=== PATIENT | male | born 1980 | race Caucasian/White ===

== ENCOUNTER 2017-03-17 13:53 | Emergency (ER) | payer MEDICAID ==
[2017-03-17 14:01] VITALS: BP 144/67
== END 2017-03-17 16:03 | disposition left against medical advice (07) ==
LOC: ED 13:53
DX: Z00.8 Encounter for other general examination (principal); Z53.21 Procedure and treatment not carried out due to patient leaving prior to being seen by health care provider

== ENCOUNTER 2018-08-06 09:54 | Emergency (ER) | payer MEDICAID, OTHER ==
[2018-08-06 10:40] VITALS: BP 147/87
--- NOTE | 2018-08-06 11:55 | UC ---
Lower Extremity/Ankle HPI - History of Current Complaint Chief Complaint: UCLowerExtremity Stated Complaint: RT FOOT INJURY Time Seen by Provider: 08/06/18 11:55 Pain Intensity: 7 - Allergies/Home Medications Allergies/Adverse Reactions: Allergies Allergy/AdvReac Type Severity Reaction Status Date / Time cefaclor [From Ceclor] Allergy Hives Verified 08/06/18 10:40 Penicillins Allergy Hives Verified 08/06/18 10:40 Sulfa (Sulfonamide Allergy Hives Verified 08/06/18 10:40 Antibiotics) Home Medications: Home Medications Pregabalin [Lyrica] 150 mg PO BID 08/06/18 [History Confirmed 08/06/18] buPROPion TAB* [Wellbutrin TAB*] 300 mg PO DAILY 08/06/18 [History Confirmed 05/15] PMH/Surg Hx/FS Hx/Imm Hx - Surgical History Surgical History: Yes Surgery Procedure, Year, and Place: [place] [facility]eth, calcified gland - Social History Alcohol Use: None Substance Use Type: None Substance Use Comment - Amount & Last Used: receiving addict-goes to [employer] Smoking Status (MU): Former Smoker Type: Cigarettes Amount Used/How Often: socially Have You Smoked in the Last Year: Yes Household Exposure Type: Cigarettes - Immunization History Most Recent Tetanus Shot: 2014 Physical Exam Vital Signs: Initial Vital Signs Temp 98.5 F 08/06/18 10:36 Pulse 74 08/06/18 10:36 Resp 18 08/06/18 10:36 BP 147/87 08/06/18 10:36 Pulse Ox 100 08/06/18 10:36 Discharge - Discharge Plan Referrals: Cinthia Larson NP [Primary Care Provider] -
== END 2018-08-06 12:30 | disposition left against medical advice (07) ==
LOC: UCEAST 09:54
DX: S99.922A Unspecified injury of left foot, initial encounter (principal); X58.XXXA Exposure to other specified factors, initial encounter; Y92.9 Unspecified place or not applicable; Z53.21 Procedure and treatment not carried out due to patient leaving prior to being seen by health care provider

== ENCOUNTER 2018-10-08 16:07 | Emergency (ER) | payer OTHER ==
[2018-10-08 16:15] VITALS: BP 135/91
--- NOTE | 2018-10-08 16:40 | UC ---
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 DOES NOT RECALL HAVING A TICK BUT ABOUT A WEEK AGO NOTED A RED LESION ON HIS RIGHT POSTERIOR SHOULDER. A FEW DAYS AGO HE NOTICED THAT IT WAS A TARGET LESION AND HE DEVELOPED HEADACHE, BODY ACHES AND SOME MALAISE/FATIGUE. DENIES ANY FEVER. - History of Current Complaint Chief Complaint: UCSkin Time Seen by Provider: 10/08/18 16:17 Stated Complaint: TICK BITE Hx Obtained From: Patient Onset/Duration: Gradual Onset, Lasting Days, Still Present Timing: Constant Onset Severity: Moderate Current Severity: Moderate Pain Intensity: 5 Pain Scale Used: 0-10 Numeric Location: Discrete - RIGHT POSTERIOR SHOULDER Character: Redness Aggravating Factor(s): Nothing Alleviating Factor(s): Nothing Associated Signs & Symptoms: Positive: Rash. Negative: Nausea, Fever, Drainage , Tenderness - Allergy/Home Medications Allergies/Adverse Reactions: Allergies Allergy/AdvReac Type Severity Reaction Status Date / Time [facility] Allergy Hives Verified 10/08/18 16:15 Penicillins Allergy Hives Verified 10/08/18 16:15 Sulfa (Sulfonamide Allergy Hives Verified 10/08/18 16:15 Antibiotics) PMH/Surg Hx/FS Hx/Imm Hx Respiratory History: Asthma - Surgical History Surgical History: Yes Surgery Procedure, Year, and Place: [place] [facility]eth, calcified gland - Family History Known Family History: Positive: Non-Contributory - Social History Alcohol Use: None Substance Use Type: None Substance Use Comment - Amount & Last Used: recoving addict-goes to cars Smoking Status (MU): Former Smoker Type: Cigarettes Amount Used/How Often: socially Have You Smoked in the Last Year: Yes Household Exposure Type: Cigarettes - Immunization History Most Recent Tetanus Shot: 2014 Review of Systems All Other Systems Reviewed And Are Negative: Yes Constitutional: Positive: Fatigue Skin: Positive: Rash Respiratory: Positive: Negative Cardiovascular: Positive: Negative Gastrointestinal: Positive: Negative Musculoskeletal: Positive: Myalgia Neurological: Positive: Headache Physical Exam Triage Information Reviewed: Yes Appearance: Well-Appearing, No Pain Distress, Well-Nourished Vital Signs: Initial Vital Signs Temp 97.8 F 10/08/18 16:12 Pulse 75 10/08/18 16:12 Resp 18 10/08/18 16:12 BP 135/91 05/14/19 16:12 Pulse Ox 100 10/08/18 16:12 Vital Signs Reviewed: Yes Eyes: Positive: Conjunctiva Clear ENT: Positive: Hearing grossly normal Neck: Positive: Supple Respiratory: Positive: No respiratory distress, No accessory muscle use Cardiovascular: Positive: Pulses Normal Abdomen Description: Positive: Soft Musculoskeletal: Positive: No Edema Neurological: Positive: Alert Psychological: Positive: Age Appropriate Behavior Skin: Positive: Rashes - 11CM x 7CM TARGET LESION RIGHT POSTERIOR SHOULDER Course/Dx - Diagnoses Provider Diagnosis: Erythema migrans (Lyme disease) Discharge - Sign-Out/Discharge Documenting (check all that apply): Patient Departure All imaging exams completed and their final reports reviewed: No Studies - Discharge Plan Condition: Stable Disposition: HOME Prescriptions: Doxycycline Monohydrate 1 cap PO BID #28 cap Patient Education Materials: Lyme Disease (ED) Referrals: Annika SANDHU,Leighton Connors [Medical Doctor] - If Needed Cinthia Larson NP [Primary Care Provider] - If Needed Additional Instructions: LYME DISEASE: You are suspected of having Lyme disease. Further testing may be necessary to confirm the diagnosis. Lyme disease is an infection spread through the bite of a deer tick. Symptoms include rash, fever, fatigue, joint swelling, and aches. Lyme disease can be treated with antibiotics. It is important that you take the entire course of medication. Call the physician if you develop severe headache, stiff neck, paralysis or "drooping" of either side of the face, or a worsening of any other symptom. The majority of patients with early Lyme disease who receive appropriate antibiotic therapy have complete resolution of the signs and symptoms of infection within 20 days and, in one trial, erythema migrans (the rash) and its associated symptoms resolved in a mean of five to six days. Patients who are more systemically ill at the beginning of treatment may take longer to recover. Some patients have mild subjective symptoms, such as headache, musculoskeletal pain, arthralgia, or fatigue, that persist for weeks to months after treatment. These subjective findings often resolve spontaneously, usually within six months , without further antibiotic therapy; they are not due to ongoing active Lyme disease. Almost all patients who have a satisfactory response to antibiotic therapy do well over the retirement. DOXYCYCLINE WILL MAKE YOU MORE SENSITIVE TO UV RAYS SO BE SURE TO TAKE EXTRA SUN PRECAUTIONS WHILE YOU ARE ON THIS MEDICATION. IF YOU HAVE ANY QUESTIONS ABOUT LYME FOLLOW-UP WITH DR. PUCKETT. FOR YOUR INFORMATION: LYME DISEASE PROPHYLAXIS The Infectious Disease Society of [place] (IDSA) does not generally recommend antimicrobial prophylaxis for prevention of Lyme disease after a recognized tick bite. However, in areas that are highly endemic for Lyme disease, a single dose of doxycycline may be offered to adult patients (200 mg) who are not and to children older than 8 years of age (4 mg/kg up to a maximum dose of 200 mg) when all of the following circumstances exist: CRITERIA FOR RECEIVING PROPHYLACTIC TREATMENT FOR LYME DISEASE 1) TICK ATTACHED FOR AT LEAST 36 HRS 2) TICK IS AN ADULT OR [place] DEER TICK 3) YOU LIVE IN AN AREA WHERE LYME DISEASE IS PREVALENT (i.e., [place], [place], [place], [place], [place] , [place], [place], [place], [place], [place], [place], [place], [place], [place]) 4) YOU HAVE NO CONTRAINDICATION TO THE MEDICATION (DOXYCYCLINE) 5) PROPHYLAXIS IS BEGUN WITHIN 72 HRS OF TICK REMOVAL THE CHANCES OF DEVELOPING LYME DISEASE ARE EXTREMELY SMALL. HOWEVER, 1 TICK MEANS THERE MAY HAVE BEEN OTHER TICKS OF WHICH YOU WEREN'T AWARE. SO BE VIGILANT OF YOUR SYMPTOMS AND DON'T HESITATE TO GET SEEN AGAIN IF YOU DEVELOP UNEXPLAINED FEVER, HEADACHE, JOINT PAIN, BODY ACHES, RASH OR ANY OTHER CONCERNING SYMPTOMS. Antibiotic treatment following a tick bite is not recommended as a means to prevent anaplasmosis, babesiosis, ehrlichiosis, or [place] spotted fever. There is no evidence this practice is effective, and it may simply delay onset of disease. Instead, persons who experience a tick bite should be alert for symptoms suggestive of tickborne illness and consult a physician if fever, rash, headache or other symptoms of concern develop. - Billing Disposition and Condition Condition: STABLE Disposition: Home
== END 2018-10-08 16:45 | disposition home or self-care (01) ==
LOC: UCEAST 16:07
DX: A69.20 Lyme disease, unspecified (principal); J45.909 Unspecified asthma, uncomplicated; M75.91 Shoulder lesion, unspecified, right shoulder; Z88.1 Allergy status to other antibiotic agents; Z88.0 Allergy status to penicillin; Z88.2 Allergy status to sulfonamides; Z87.891 Personal history of nicotine dependence
CPT/HCPCS: 99212; G0463

== ENCOUNTER 2019-04-06 15:57 | Emergency (ER) | payer OTHER ==
[2019-04-06 16:22] VITALS: BP 131/94
--- NOTE | 2019-04-06 16:30 | UC ---
Skin Complaint HPI - HPI Summary HPI Summary: abscess with surrounding cellulites left forearm, in 2 separate areas, right arm has 2 areas of superficial thrombophlebitis, no streaking, elbows with full rom, n/m/c intact distally==no fevers or chills - History of Current Complaint Chief Complaint: UCRash Time Seen by Provider: 04/06/19 16:09 Stated Complaint: LAC INFECTION Hx Obtained From: Patient Onset/Duration: Sudden Onset, Lasting Days - 3, Still Present, Worse Since - today Timing: Constant Onset Severity: Mild Current Severity: Moderate Location: Discrete - right ac and left forearm Character: Pain, Redness Aggravating Factor(s): Touch Alleviating Factor(s): Treatment [employer]: - patient opened abscess on left forearm himself yesterday Associated Signs & Symptoms: Positive: Negative - Allergy/Home Medications Allergies/Adverse Reactions: Allergies Allergy/AdvReac Type Severity Reaction Status Date / Time cefaclor [From Ceclor] Allergy Hives Verified 04/06/19 16:23 Penicillins Allergy Hives Verified 04/06/19 16:23 Sulfa (Sulfonamide Allergy Hives Verified 04/06/19 16:23 Antibiotics) PMH/Surg Hx/FS Hx/Imm Hx Previously Healthy: No Psychological History: Anxiety Other Psychological History: opiate use disorder on MAT - Surgical History Surgical History: Yes Surgery Procedure, Year, and Place: [place] Teeth, calcified gland - Family History Known Family History: Positive: Non-Contributory - Social History Occupation: Employed Full-time Alcohol Use: None Substance Use Type: None Substance Use Comment - Amount & Last Used: recoving addict-goes to cars Smoking Status (MU): Former Smoker Type: Cigarettes Amount Used/How Often: socially Have You Smoked in the Last Year: Yes Household Exposure Type: Cigarettes - Immunization History Most Recent Tetanus Shot: 2014 Review of Systems All Other Systems Reviewed And Are Negative: Yes Constitutional: Positive: Negative Skin: Positive: Other - 2 areas approx 10 cm diameter onleft fore arm, 2 small superficial; tender erythemic area right ac Eyes: Positive: Negative ENT: Positive: Negative Respiratory: Positive: Negative Cardiovascular: Positive: Negative Gastrointestinal: Positive: Negative Genitourinary: Positive: Negative Motor: Positive: Negative Neurovascular: Positive: Negative Musculoskeletal: Positive: Negative Neurological: Positive: Negative Psychological: Positive: Negative Is Patient Immunocompromised?: No Physical Exam Triage Information Reviewed: Yes Appearance: Well-Appearing, No Pain Distress, Well-Nourished Vital Signs Reviewed: Yes Eye Exam: Normal Eyes: Positive: Conjunctiva Clear ENT Exam: Normal ENT: Positive: Normal ENT inspection, Hearing grossly normal, Pharynx normal. Negative: Nasal congestion, Trismus, Muffled voice, Hoarse voice Dental Exam: Normal Neck exam: Normal Neck: Positive: Supple, Nontender Respiratory Exam: Normal Respiratory: Positive: Chest non-tender, No respiratory distress, No accessory muscle use Cardiovascular Exam: Normal Cardiovascular: Positive: No Murmur, Pulses Normal, Brisk Capillary Refill, Tachycardia Musculoskeletal Exam: Normal Musculoskeletal: Positive: Strength Intact, ROM Intact, No Edema Neurological Exam: Normal Neurological: Positive: Alert, Muscle Tone Normal Psychological Exam: Normal Skin Exam: Other Skin: Positive: Other - left forearm with 2 areas erythema with center tenderness approx 10 cm from injection drug use 3 days ago Course/Dx - Course Course Of Treatment: warm compress 4-5 times day, clindamycin, to ed if symptoms worsen in any way-- [facility] for follow up - Diagnoses Provider Diagnosis: Cellulitis and abscess of upper arm and forearm Discharge ED - Sign-Out/Discharge Documenting (check all that apply): Patient Departure All imaging exams completed and their final reports reviewed: No Studies - Discharge Plan Condition: Stable Disposition: HOME Prescriptions: Clindamycin Cap(NF) [Clindamycin Cap 300 mg Cap(NF)] 300 mg PO Q6H #40 cap Ibuprofen TAB* [Motrin TAB* 600 MG] 600 mg PO Q6H PRN #40 tab PRN Reason: Pain - Moderate Patient Education Materials: Cellulitis (ED), Abscess (ED), Heat Pack Application (ED) Forms: *Work Release Referrals: [facility] [Outside] - 3 Days - Billing Disposition and Condition Condition: STABLE Disposition: Home - Attestation Statements Provider Attestation: I was available for consult. This patient was seen by the PA[facility]. The patient was not presented to , seen by or examined by nv -Karma Mendiola MD
[2019-04-06] MEDS ORDERED: Ibuprofen TAB* 600 MG PO ONE (16:36)
[2019-04-06] MEDS ORDERED: Clindamycin CAP* 150 MG PO ONE ×2 (16:37→16:39)
== END 2019-04-06 17:04 | disposition home or self-care (01) ==
LOC: UCEAST 15:57
DX: L03.114 Cellulitis of left upper limb (principal); L02.414 Cutaneous abscess of left upper limb; Z88.0 Allergy status to penicillin; Z88.2 Allergy status to sulfonamides; Z88.1 Allergy status to other antibiotic agents; Z87.891 Personal history of nicotine dependence
CPT/HCPCS: 99212; A9270-GY; G0463

== ENCOUNTER 2019-05-29 16:41 | Emergency (ER) | payer OTHER ==
--- OUTSIDE RECORDS SUMMARY | 2019-05-29 16:48 | XMS REPORT ---
:1980 Author Organization [facility] Care Team Providers Name Role Phone Lucy Xiong Primary Care Physician Unavailable Allergies, Adverse Reactions, Alerts Allergy Code CodeSystem Reaction Severity Criticality Status Start Substance Date Moderate Medications Medication Medication Medication Start Stop Route Dose Status Fill Code CodeSystem Date Date Instructions buprenorphin 1640914 RxNorm 2019- SL 8-[address] 1 film e-naloxone 09-20- film once a under tongue day once a day for 28 day(s) bupropion 558052 RxNorm 2019- oral 300 mg completed for 30 HCl 3 06-05 tablet day(s) extended release 24 hr Lyrica 062564 RxNorm 2018- oral 150 mg completed for 30 06-21 05-23 capsule day(s) buprenorphin 511812 RxNorm 2018- SL 8-[address] 1 e-naloxone 10-17-16 tablet, tablet under sublingual tongue once a once a day day for 28 day(s) nicotine 574752 RxNorm 2019- bucl 4 mg gum completed for 30 (polacrilex) 07-31 07-16 day(s) Lyrica 745646 RxNorm 2019- oral 150 mg 1 active Take 1 8- 11-19 capsule capsule twice a day twice a day for 30 day(s) bupropion 095735 RxNorm oral 300 mg 1 active Take 1 tablet HCl 6-05 tablet every extended morning for release 24 30 day(s) hr every morning Lyrica 322109 RxNorm oral 100 mg 1 active Take 1 7-29 capsule capsule once once a day a day for 30 day(s) buprenorphin 6057740 RxNorm 2019- SL 8-2 mg completed for 28 e-naloxone 2- film day(s) buprenorphin 7976704 RxNorm SL 8-[address] 1 film e-naloxone 8-16 film once a under tongue day once a day for 28 day(s) Lyrica 418320 RxNorm 2019- oral 150 mg 1 completed Take 1 10-17 08-21 capsule capsule twice a day twice a day for 30 day(s) armodafinil 236785 RxNorm oral 250 mg active for 30 3-25 tablet day(s) nicotine 084443 RxNorm bucl 4 mg 1 gum active Chew 1 piece (polacrilex) 7-16 as directed as directed for 30 day(s) Problems Problem Name Code CodeSystem Alternate Alternate Start End Status Narrative Code CodeSystem Date Date Nicotine 07728683 SNOMED-CT Active dependence, 4-16 unspecified, uncomplicated Generalized 36202430 SNOMED-CT Active anxiety 4-16 disorder 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, recurrent, in partial remission Major 61070332 SNOMED-CT Active 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, recurrent, in partial remission Nicotine 70086332 SNOMED-CT Active dependence, 4-16 unspecified, in remission Alcohol 79443570 SNOMED-CT Active dependence, in 4-16 remission 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, in remission Opioid 16402268 SNOMED-CT Active dependence, in 4-16 remission Major 86994564 SNOMED-CT Active 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, recurrent, in partial remission Major 99523289 SNOMED-CT 0 Active 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, recurrent, in partial remission Relevant diagnostic tests/laboratory data Narrative No Information Procedures Procedure Code CodeSystem Target Date of Status Service Device Device Device Name Site Procedure Delivery Code Name UID Location Psychotherap [id number] SNOMED-CT () 2018-12-09 complete Mental y, 45 04 d Health- minutes with [facility] patient [address], [id number] [place] [id number] SNOMED-CT () 2018-09-30 complete Mental other 7 d Health- outpatient [facility] visit for [address], [facility], established [id number] patient, [id number] which requires at least 2 of these 3 snell components: An expanded problem focused history; An expanded problem focused examination; Medical decision making of low Office or [id number] SNOMED-CT () 2018-12-23 complete Mental other 6 d Health- outpatient [facility] visit for [facility] the [address] [place] [address], established [id number] patient, [id number] which requires at least 2 of these 3 snell components: A problem focused history; A problem focused examination; Straightforw chris medical decision making. Counselin SNOMED-CT () 2018-09-23 complete Mental d Health[address], [id number] [id number] SNOMED-CT () 2019-01-06 complete Mental d [address], [id number] SNOMED-CT () 2019-04-04 complete Mental d Health[address], [id number] Encounters/Encounter Diagnoses Encounter Name Encounter Diagnosis Diagnosis Diagnosis Date of Service Code Code Name CodeSystem Diagnosis Delivery Location [facility] [id number] Major SNOMED-CT 2019-04-16 Behavioral Established depressive Health patient 10 disorder, Clinic , , Minutes recurrent, , in partial remission Vital Signs No Information Social History Element Description Description Start End Code CodeSystem AdditionalInfo Date Date SexAssignedAtBirth Male 1981-0 M AdministrativeGender 10-03 Hospital Discharge Instructions Reason For Referral Medical Equipment FDA Assessments
[2019-05-29] MEDS ORDERED: Naproxen TAB* 250 MG PO ONE (17:51)
[2019-05-29] MEDS ORDERED: Clindamycin CAP* 150 MG PO ONE (17:51)
--- NOTE | 2019-05-29 17:54 | UC ---
Skin Complaint HPI - HPI Summary HPI Summary: 38-year-old male with history of IV methamphetamine use presents for abscess to his left antecubital. Patient states that started developing a tender red area approximately 3 days ago at an injection site. States it has progressively become more tender, swollen, and now has redness that is spreading both up and down his arm. He has been applying warm moist compresses and attemped to drain using a needle earlier today. Has history of previous abscess but denies history of MRSA. Denies fever, chills, drainage, or joint pain. - History of Current Complaint Chief Complaint: UCUpperExtremity Time Seen by Provider: 05/29/19 17:38 Stated Complaint: INFECTION PER PT Hx Obtained From: Patient Pain Intensity: 9 - Allergy/Home Medications Allergies/Adverse Reactions: Allergies Allergy/AdvReac Type Severity Reaction Status Date / Time cefaclor [From [facility]] Allergy Hives Verified 04/06/19 16:23 Penicillins Allergy Hives Verified 05/29/19 16:52 Sulfa (Sulfonamide Allergy Hives Verified 05/29/19 16:52 Antibiotics) PMH/Surg Hx/FS Hx/Imm Hx Previously Healthy: Yes Psychological History: Depression - Surgical History Surgical History: Yes Surgery Procedure, Year, and Place: [place] [facility], calcified gland - Family History Known Family History: Positive: Non-Contributory - Social History Occupation: Employed Full-time Lives: With Family Alcohol Use: None Substance Use Type: Other - IV methamphetamines Substance Use Comment - Amount & Last Used: Last used yesterday Smoking Status (MU): Former Smoker Type: Cigarettes Amount Used/How Often: socially Have You Smoked in the Last Year: Yes Household Exposure Type: Cigarettes - Immunization History Most Recent Tetanus Shot: 2014 Review of Systems All Other Systems Reviewed And Are Negative: Yes Constitutional: Negative: Fever, Chills Skin: Positive: Other - See HPI Respiratory: Positive: Negative Cardiovascular: Positive: Negative Gastrointestinal: Positive: Negative Genitourinary: Positive: Negative Motor: Negative: Weakness Neurovascular: Negative: Decreased Sensation Musculoskeletal: Negative: Arthralgia, Decreased ROM Neurological: Positive: Negative Is Patient Immunocompromised?: No Physical Exam - Summary Physical Exam Summary: GENERAL APPEARANCE: Alert and cooperative young adult male who appears to be uncomfortable and restless. CARDIAC: Normal S1 and S2. No S3, S4 or murmurs. Rhythm is regular. There is no peripheral edema, cyanosis or pallor. Extremities are warm and well perfused. Capillary refill is less than 2 seconds. Peripheral pulses intact. LUNGS: Clear to auscultation without rales, rhonchi, wheezing or diminished breath sounds. ABDOMEN: Positive bowel sounds. Soft, nondistended, nontender. No guarding or rebound. No masses or hepatosplenomegally. MUSKULOSKELETAL: ROM intact to all extremities. No joint erythema or tenderness. Normal muscular development. Normal gait. EXTREMITIES: Large tender 4 cm x 3 cm area of induration with fluctuance and edema to the left lateral antecubital fossa. Erythema of the surrounding tissues that extend from the mid anterior forearm to the mid anterior upper arm with increased warmth. No drainage noted. SKIN: Skin normal color, texture and turgor. Triage Information Reviewed: Yes Vital Signs: Initial Vital Signs Temp 98.1 F 05/29/19 16:48 Pulse 88 05/29/19 16:48 Resp 18 05/29/19 16:48 BP 130/80 05/29/19 16:48 Pulse Ox 97 05/29/19 16:48 Vital Signs Reviewed: Yes Procedures - Procedure Summary Procedure Summary: PROCEDURE NOTE: Incision and drainage of left antecubital fossa PROCEDURE: Informed consent was obtained and timeout protocol was performed prior to initiating the procedure. The skin was prepped with Betadine and the area draped in the usual manner. The site was anesthetized with a total of 3 ml of 1% lidocaine with epinephrine. A 1 cm linear incision was made and the purulent material expressed. The abscess was explored thoroughly and sequestered pockets were opened then irrigated with a copious amount of sterile saline. The wound was packed with 1/2 inch plain packing gauze. A bulky gauze dressing was then placed. Bleeding was minimal. The patient tolerated the procedure well without complications. Standard post- procedure care is explained and return precautions were given. Diagnostics - Radiology No standard instances Radiology Interpretation Completed By: Radiologist Summary of Radiographic Findings: Exam: US Left Non-Vascular Joint or Other Extremity Structure, Limited Upper Extremity. Clinical indication: Edema; Elbow ; Left; Additional info: Left antecubital abscess. TECHNIQUE: Imaging protocol : Left US Non-Vascular Joint or Other Extremity Structure. Limited exam of the upper extremity focused on antecubital region. COMPARISON: No relevant prior studies available. FINDINGS: Soft tissues: Limited images obtained through area clinical concern in left antecubital fossa reveal a heterogeneous hypoechoic 4.6 x 2.3 0.2 cm avascular collection with induration of the adjacent subcutaneous tissues and enhanced through transmission. Anterior wall of the collection lies approximately 3-5 mm deep to the skin surface. IMPRESSION: 4.6 x 2.3 x 2.2 cm hypoechoic collection in left antecubital fossa, most consistent with abscess. Course/Dx - Course Course Of Treatment: 38-year-old male with history of IV methamphetamine use presents for abscess to his left antecubital. Patient states that started developing a tender red area approximately 3 days ago at an injection site. States it has progressively become more tender, swollen, and now has redness that is spreading both up and down his arm. He has been applying warm moist compresses and attemped to drain using a needle earlier today. Has history of previous abscess but denies history of MRSA. Denies fever, chills, drainage, or joint pain. Afebrile. Vital signs stable. Patient had a large tender 4 cm x 3 cm area of induration with fluctuance and edema to the left lateral antecubital fossa. Erythema of the surrounding tissues that extend from the mid anterior forearm to the mid anterior upper arm with increased warmth. No drainage noted. The patient was given naproxen 500 mg PO for pain and a dose of clindamycin 300 mg PO. A soft tissue ultra sound was obtained and showed a 4.6 x 2.3 x 2.2 cm hypoechoic collection in left antecubital fossa, most consistent with abscess. Reviewed results with patient. An I&D of the abscess was performed and a moderate-large amount of purulent drainage was expressed from the wound. A wound culture was obtained and pending. Patient was given a single dose of hydrocodone- acetaminophen 5 mg/325 mg 1 tab PO for additional pain management. Sedation warnings were provided to the patient and his mother was to provide transportation home. Will start him on clindamycin 300 mg QID x 7 days and provide him with a prescription for naproxen milligrams every 12 hours as needed for pain. Patient was offered information about drug rehabilitation but declined at this time stating that his mother was helping him arrange for this. Patient is to return here tomorrow for a wound check and possible repacking of the wound. Anticipatory guidance and warning symptoms requiring immediate evaluation in the emergency room reviewed with the patient. Verbalizes understanding and agrees with plan of care. - Differential Diagnoses - Skin Complaint Differential Diagnoses: Abscess, Cellulitis, MRSA - Diagnoses Provider Diagnosis: Abscess of left arm, Active intravenous drug use Discharge ED - Sign-Out/Discharge Documenting (check all that apply): Patient Departure All imaging exams completed and their final reports reviewed: Yes - Discharge Plan Condition: Stable Disposition: HOME Prescriptions: Clindamycin HCl 300 mg PO QID #28 capsule Naproxen [Naproxen 500 mg tab] 500 mg PO Q12HR PRN #30 tablet PRN Reason: Pain - Moderate Patient Education Materials: Abscess (ED) Referrals: Cinthia Larson NP [Primary Care Provider] - Additional Instructions: The ultrasound performed tonight should a collection of fluid consistent with a superficial abscess of the skin. We performed an incision and drainage of the abscess tonight and a packing was placed in the wound to allow for continued drainage. A culture was taken and we will contact you if this shows there is a need to change your antibiotic. Start clindamycin 300 mg 1 capsule 4 times a day for 7 days. Be sure to take the entire course even if feeling better. Given the first dose in the clinic at approximately 6:00 PM. Take naproxen 500 mg 1 tablet every 12 hours as needed for pain. You're given a dose of this in the clinic also at approximately 6:00 PM. Leave the dressing that was applied in place until tomorrow. If the dressing becomes saturated do not removed simply had more gauze. If it soaks through a second time he should be evaluated in the emergency room. Return here tomorrow for a wound check and possible repacking of the wound. Seek immediate medical attention in the emergency room if you develop a fever greater than 100.5 F, you have severe pain that is not managed with the pain medication, you have swelling of the arm, redness that rapidly spreads, or any worsening of symptoms. - Billing Disposition and Condition Condition: STABLE Disposition: Home
[2019-05-29] MEDS ORDERED: Lidocaine 1% w EPI 1:200,000* SDV 30 ML VIAL INJ ONE (19:17)
[2019-05-29] MEDS ORDERED: HYDROcodone/ACETAMIN 5-325 MG* 1 TAB PO ONE (19:47)
[2019-05-29 20:11] VITALS: BP 128/79
--- NOTE | 2019-05-31 07:03 | UC ---
- Progress Note Progress Note: MRSA neg s aureus neg pt on clinda culture pending no change roverto Course/Dx - Diagnoses Provider Diagnoses: Abscess of left arm, Active intravenous drug use Discharge ED - Sign-Out/Discharge Documenting (check all that apply): Post-Discharge Follow Up All imaging exams completed and their final reports reviewed: Yes - Discharge Plan Condition: Stable Disposition: HOME Prescriptions: Clindamycin HCl 300 mg PO QID #28 capsule Naproxen [Naproxen 500 mg tab] 500 mg PO Q12HR PRN #30 tablet PRN Reason: Pain - Moderate Patient Education Materials: Abscess (ED) Referrals: Cinthia Larson NP [Primary Care Provider] - Additional Instructions: The ultrasound performed tonight should a collection of fluid consistent with a superficial abscess of the skin. We performed an incision and drainage of the abscess tonight and a packing was placed in the wound to allow for continued drainage. A culture was taken and we will contact you if this shows there is a need to change your antibiotic. Start clindamycin 300 mg 1 capsule 4 times a day for 7 days. Be sure to take the entire course even if feeling better. Given the first dose in the clinic at approximately 6:00 PM. Take naproxen 500 mg 1 tablet every 12 hours as needed for pain. You're given a dose of this in the clinic also at approximately 6:00 PM. Leave the dressing that was applied in place until tomorrow. If the dressing becomes saturated do not removed simply had more gauze. If it soaks through a second time he should be evaluated in the emergency room. Return here tomorrow for a wound check and possible repacking of the wound. Seek immediate medical attention in the emergency room if you develop a fever greater than 100.5 F, you have severe pain that is not managed with the pain medication, you have swelling of the arm, redness that rapidly spreads, or any worsening of symptoms. - Billing Disposition and Condition Condition: STABLE Disposition: Home
--- NOTE | 2019-06-02 15:03 | UC ---
- Progress Note Progress Note: Wound culture final results with 1) Enterobacter cloacae 2) H. parainfluenzar 3) Strep intermedius 4) Klebsiella Oxytoca The clindamycin should cover the strep. I saw pt the day after I&D and wound appear to be healing well at that time. Recommend starting doxycycline BID for 7 days to cover for E. cloacae and klebsiella Course/Dx - Diagnoses Provider Diagnoses: Abscess of left arm, Active intravenous drug use Discharge ED - Sign-Out/Discharge Documenting (check all that apply): Post-Discharge Follow Up All imaging exams completed and their final reports reviewed: Yes - Discharge Plan Condition: Stable Disposition: HOME Prescriptions: Clindamycin HCl 300 mg PO QID #28 capsule DOXYcycline CAP(*) [DOXYcycline 100MG CAP(*)] 100 mg PO BID #14 cap Naproxen [Naproxen 500 mg tab] 500 mg PO Q12HR PRN #30 tablet PRN Reason: Pain - Moderate Patient Education Materials: Abscess (ED) Referrals: Cinthia Larson NP [Primary Care Provider] - Additional Instructions: The ultrasound performed tonight should a collection of fluid consistent with a superficial abscess of the skin. We performed an incision and drainage of the abscess tonight and a packing was placed in the wound to allow for continued drainage. A culture was taken and we will contact you if this shows there is a need to change your antibiotic. Start clindamycin 300 mg 1 capsule 4 times a day for 7 days. Be sure to take the entire course even if feeling better. Given the first dose in the clinic at approximately 6:00 PM. Take naproxen 500 mg 1 tablet every 12 hours as needed for pain. You're given a dose of this in the clinic also at approximately 6:00 PM. Leave the dressing that was applied in place until tomorrow. If the dressing becomes saturated do not removed simply had more gauze. If it soaks through a second time he should be evaluated in the emergency room. Return here tomorrow for a wound check and possible repacking of the wound. Seek immediate medical attention in the emergency room if you develop a fever greater than 100.5 F, you have severe pain that is not managed with the pain medication, you have swelling of the arm, redness that rapidly spreads, or any worsening of symptoms. - Billing Disposition and Condition Condition: STABLE Disposition: Home
== END 2019-05-29 20:11 | disposition home or self-care (01) ==
LOC: UCEAST 16:41
DX: L02.414 Cutaneous abscess of left upper limb (principal); F15.90 Other stimulant use, unspecified, uncomplicated; Z88.0 Allergy status to penicillin; Z88.1 Allergy status to other antibiotic agents; Z88.2 Allergy status to sulfonamides; Z87.891 Personal history of nicotine dependence
CPT/HCPCS: 10060; 87070; 87077; 87185; 87186; 87205; 87640; 87641; 99212; A9270-GY; G0463; J2001

== ENCOUNTER 2019-05-30 14:28 | Emergency (ER) | payer OTHER ==
--- NOTE | 2019-05-30 15:45 | UC ---
Skin Complaint HPI - HPI Summary HPI Summary: 38 yo male presents for wound check. He tells me that yesterday he had a left AC abscess drained and packed. Here today for wound check. Pt states is feeling much better. Has had dressing in place since visit yesterday. Has been taking anbx. (Wound culture neg MRSA). No fevers - History of Current Complaint Time Seen by Provider: 05/30/19 15:44 Stated Complaint: RECHECK ABCESS Hx Obtained From: Patient Onset/Duration: Gradual Onset Onset Severity: Severe Current Severity: Mild Pain Intensity: 3 Pain Scale Used: 0-10 Numeric - Allergy/Home Medications Allergies/Adverse Reactions: Allergies Allergy/AdvReac Type Severity Reaction Status Date / Time cefaclor [From [facility]] Allergy Hives Verified 05/30/19 15:50 Penicillins Allergy Hives Verified 05/30/19 15:50 Sulfa (Sulfonamide Allergy Hives Verified 05/30/19 15:50 Antibiotics) PMH/Surg Hx/FS Hx/Imm Hx Psychological History: Depression - Surgical History Surgical History: Yes Surgery Procedure, Year, and Place: [place] [facility], calcified gland - Family History Known Family History: Positive: Non-Contributory - Social History Lives: With Family Alcohol Use: None Substance Use Type: Heroin, Other - IV methamphetamines Substance Use Comment - Amount & Last Used: Last used yesterday Smoking Status (MU): Former Smoker Type: Cigarettes Amount Used/How Often: socially Have You Smoked in the Last Year: Yes Household Exposure Type: Cigarettes - Immunization History Most Recent Tetanus Shot: 2014 Review of Systems All Other Systems Reviewed And Are Negative: No Constitutional: Positive: Negative Skin: Positive: Other - Abscess left AC Respiratory: Positive: Negative Cardiovascular: Positive: Negative Neurovascular: Positive: Negative Neurological: Positive: Negative Psychological: Positive: Negative Physical Exam - Summary Physical Exam Summary: GENERAL: NAD. WDWN. No pain distress. SKIN: LEFT AC: 2.0cm x 2.0cm mild firmness. Central incision with packing in place. Mildly TTP. No warmth. FROM. NECK: Supple. Nontender. No lymphadenopathy. CHEST: No accessory muscle use. Breathing comfortably and in no distress. CV: Pulses intact. Cap refill <2seconds NEURO: Alert. PSYCH: Age appropriate behavior. Triage Information Reviewed: Yes Vital Signs: Vital Signs: Temp Pulse Resp BP Pulse Ox 97.1 F 95 18 127/73 100 05/30/19 15:47 05/30/19 15:47 05/30/19 15:47 05/30/19 15:47 05/30/19 15:47 Vital Signs Reviewed: Yes Course/Dx - Course Course Of Treatment: Packing removed. Scant purulent material expressed. Appears well drained and healing. Bandaged with telfa, kerlix, and BARTOLO wrap. Advised to continue anbx and f/u if symptoms worsen or develops fever - Diagnoses Provider Diagnosis: Abscess Discharge ED - Sign-Out/Discharge Documenting (check all that apply): Patient Departure All imaging exams completed and their final reports reviewed: No Studies - Discharge Plan Condition: Stable Disposition: HOME Patient Education Materials: Abscess (ED) Referrals: Cinthia Larson NP [Primary Care Provider] - Additional Instructions: If you develop a fever, shortness of breath, chest pain, new or worsening symptoms - please call your PCP or go to the ED immediately. Continue taking your antibiotic Change the dressing daily until well healed - Billing Disposition and Condition Condition: STABLE Disposition: Home
[2019-05-30 15:50] VITALS: BP 127/73
== END 2019-05-30 16:38 | disposition home or self-care (01) ==
LOC: UCEAST 14:28
DX: L02.414 Cutaneous abscess of left upper limb (principal); Z88.1 Allergy status to other antibiotic agents; Z88.0 Allergy status to penicillin; Z88.2 Allergy status to sulfonamides; Z87.891 Personal history of nicotine dependence
CPT/HCPCS: 99212; G0463

== ENCOUNTER 2020-04-15 18:24 | Inpatient (IN) ==
[2020-04-15] MEDS ORDERED: Lorazepam PYXIS KEY PRN (18:56)
[2020-04-15] MEDS ORDERED: Haloperidol 5 mg/ml SDV IV/IM 5 MG/ML AMP IM ONE (18:56)
[2020-04-15] MEDS ORDERED: LORazepam 2 mg VIAL 1 ml IM ONE (18:56)
[2020-04-15] MEDS ORDERED: Lorazepam PYXIS KEY ONE (18:59)
[2020-04-15 20:28] LABS: ABS Basophils 0.1 10^3/ul (0-0.2); ABS Eosinophils 0.3 10^3/ul (0-0.6); ABS Lymphocytes 1.8 10^3/ul (1.0-4.8); ABS Monocytes 0.7 10^3/ul (0-0.8); ABS Neutrophils 6.6 10^3/ul (1.5-7.7); Eosinophil % 2.7 %; Hematocrit 37 % (42-52); Hemoglobin 12.7 g/dL (14.0-18.0); Lymphocyte % 19.4 %; Mean Corpuscular HGB Conc 35 g/dL (31-36); Mean Corpuscular Hemoglobin 30 pg (27-31); Mean Corpuscular Volume 87 fL (80-94); Mean Platelet Volume 8.1 fL (7.4-10.4); Platelet Count 227 10^3/uL (150-450); Red Blood Count 4.21 10^6 /uL (4.18-5.48); Red Cell Distribution Width 14 % (10-15); White Blood Count 9.5 10^3/uL (3.5-10.8)
[2020-04-15 20:46] LABS: ALT 30 U/L (7-52); AST 26 U/L (13-39); Albumin 4.1 g/dL (3.2-5.2); Albumin/Globulin Ratio 1.7 (1-3); Alkaline Phosphatase 75 U/L (34-104); Anion Gap 6 mmol/L (2-11); BUN/Creatinine Ratio 17.9 (8-20); Blood Urea Nitrogen 15 mg/dL (6-24); CO2 Carbon Dioxide 28 mmol/L (22-32); Calcium 8.8 mg/dL (8.6-10.3); Chloride 103 mmol/L (101-111); EGFR African American 123.7 (>60); EGFR Non-African American 102.3 (>60); Globulin 2.4 g/dL (2-4); Glucose 99 mg/dL (70-100); Potassium 3.6 mmol/L (3.5-5.0); Sodium 137 mmol/L (135-145); Total Protein 6.5 g/dL (6.4-8.9)
[2020-04-15 21:16] LABS: Acetaminophen < 15 mcg/mL; Alcohol, S < 10 mg/dL (<10)
[2020-04-15 21:31] LABS: TSH Ultra Thyroid Stim Horm 2.61 mcIU/mL (0.34-5.60)
[2020-04-15 22:03] LABS: Salicylate < 2.50 mg/dL (<30)
[2020-04-16] MEDS ORDERED: Al Hydrox/Mg Hydrox/Simet LIQ 30 ML UDC PO PRN (14:23)
[2020-04-16] MEDS: Buprenorp/Nalox 8-2 MG FILM SL FILM SCH (21:06)
[2020-04-17] MEDS: Vitamin THERAPEUTIC TAB PO SCH (08:27)
[2020-04-17] MEDS: Buprenorp/Nalox 8-2 MG FILM SL FILM SCH (08:28)
[2020-04-17 08:37] LABS: HDL Cholesterol 35.2 mg/dL
[2020-04-17] MEDS ORDERED: ARMODAFINIL 250 MG PO SCH (09:00)
[2020-04-18] MEDS: Vitamin THERAPEUTIC TAB PO SCH (08:02)
[2020-04-18] MEDS: Buprenorp/Nalox 8-2 MG FILM SL FILM SCH (08:02)
[2020-04-18 11:03] LABS: Hepatitis B Surface Antigen Nonreactive (Nonreactive)
[2020-04-18 11:08] LABS: Hepatitis A Ab IgM Reactive (Negative); Hepatitis B Core IgM Nonreactive (Nonreactive)
[2020-04-18 12:29] LABS: Hepatitis C Antibody Reactive (Negative)
[2020-04-19 07:43] VITALS: BP 118/83
[2020-04-19] MEDS: Buprenorp/Nalox 8-2 MG FILM SL FILM SCH (07:44)
[2020-04-19] MEDS: Vitamin THERAPEUTIC TAB PO SCH (07:44)
== END 2020-04-19 16:35 | disposition home or self-care (01) ==
LOC: ED 18:24 → BSU 04-16 14:23
PROVIDERS: ADMIT Psychiatry & Neurology Psychiatry; ATTEND Psychiatry & Neurology Psychiatry